=== PATIENT | female | born 1990 | race Caucasian/White ===

== ENCOUNTER → 2016-10-20 | Outpatient (CLI) | payer OTHER ==
[2016-10-20 18:28] LABS: CONTROL LINE HCG INT CTR LINE PRESENT
== END ==
LOC: M SMT 13:41
PROVIDERS: ATTEND Advanced Practice Midwife
DX: N92.6 Irregular menstruation, unspecified (principal)

== ENCOUNTER → 2016-10-31 | Outpatient (CLI) | payer OTHER ==
--- NOTE | 2016-11-01 04:00 | REP ---
Clinical: Abnormal menstrual cycles. Comparison: 08/03/2015 Technique: Transabdominal pelvic ultrasound followed by transvaginal examination for better evaluation of the endometrium and adnexa with color Doppler evaluation of the ovaries. Findings: Bladder is unremarkable and measures 4.9 x 4.2 x 2.1 cm . Normal anteverted uterus measures 6.8 x 3.2 x 4.1 cm. The endometrial complex measures 7.6 mm thickness. No discrete uterine or endometrial abnormalities are appreciated. Incidental note is made of few subcentimeter Nabothian cysts. Bilateral ovaries are normal in vascularity without evidence for torsion. Right ovary measures 3.7 x 2.8 x 2.2 cm and includes 1.2 cm hyperechoic mass which was not apparent on prior examination dated 2014. Right RI = 0.41 . Left ovary measures 3.3 x 2.3 x 3.5 cm and appears normal. Left RI = 0.45 . No pelvic fluid or adnexal mass lesion . Impression: 1. Normal appearing uterus and left ovary. 2. 1.2 cm hyperechoic lesion in the right ovary. Differential diagnosis includes hemorrhagic cyst, endometrioma and dermoid. Consider reevaluation in 4-6 weeks. Signed by Renzo Lance MD 11/01/2016 03:51 A
== END ==
LOC: M RAD 13:46
PROVIDERS: ATTEND Advanced Practice Midwife
DX: N92.0 Excessive and frequent menstruation with regular cycle (principal)

== ENCOUNTER → 2016-11-06 | Outpatient (CLI) | payer OTHER ==
[2016-11-07 10:52] LABS: LUTEINIZING HORMONE 10.8 mIU/mL
[2016-11-07 10:53] LABS: FOLLICLE STIMULATING HORMONE 5.7 mIU/mL
== END ==
LOC: M LRY 12:38
PROVIDERS: ATTEND Advanced Practice Midwife
DX: N92.6 Irregular menstruation, unspecified (principal)

== ENCOUNTER → 2016-11-29 | Outpatient (CLI) | payer OTHER ==
[2016-11-29 12:15] LABS: PROLACTIN 7.6 NG/ML
[2016-11-30 11:10] LABS: ESTRADIOL 44.7 PG/ML; PROGESTERONE 0.9 NG/ML; THYROXINE (T4) 10.9 UG/DL (4.5-12.0)
== END ==
LOC: M LRY 08:59
PROVIDERS: ATTEND Advanced Practice Midwife
DX: N92.6 Irregular menstruation, unspecified (principal)

== ENCOUNTER → 2017-01-06 | Outpatient (CLI) | payer OTHER ==
--- NOTE | 2017-01-06 14:23 | REP ---
Pelvic ultrasound including transabdominal and endovaginal ultrasound assessment: Comparisons are 10/31/2016 and 08/03/2015. The bladder is moderately distended. The uterus is anteverted and normal size measuring 6.6 x 2.7 x 4.1 centimeters. The endometrium is not thickened measuring 5.6 mm. There is an echogenic mass in the right ovary measuring 1.6 cm. On the comparison study this measured up to 1.2 cm. Including this mass. the right ovary is normal size measuring 4.6 x 2.9 x 3.2 cm (3.7 x 2.2 x 2.8, cm previously). The left ovary is normal size measuring 3.7 x 2.1 x 3.7 cm (3.3 x 2.3 x 3.5 cm previously. There is vascular flow in both ovaries with Doppler ultrasound. The resistive indices are not calculated, however, Doppler arterial wave forms are noted in each ovary. Impression: There is a persisting echogenic mass in the right ovary as described, not present on 08/03/2015 but similar to 10/31/2016. I would recommend a gynecology consultation. Signed by Juanpablo Leigh MD 01/06/2017 02:15 P
== END ==
LOC: M RAD 13:01
PROVIDERS: ATTEND Advanced Practice Midwife
DX: N83.209 Unspecified ovarian cyst, unspecified side (principal)

== ENCOUNTER 2017-01-13 22:33 | Emergency (ER) | payer OTHER ==
[~2017-01-13] VITALS: Ht 170.2 cm; Wt 81.6 kg
[2017-01-13] MEDS ORDERED: LEVO88TA3 PO (22:45)
[2017-01-14] MEDS ORDERED: KETO10TAB PO (02:09)
[2017-01-14] MEDS ORDERED: CIPR500T89 PO (02:09)
[2017-01-14] MEDS ORDERED: CIPROFLOXACIN 500 MG TAB PO ONE (02:15)
[2017-01-14 02:35] VITALS: BP 124/80
== END 2017-01-14 02:36 | disposition home or self-care (01) ==
LOC: M ED 23:35
DX: S39.012A Strain of muscle, fascia and tendon of lower back, initial encounter (principal); X58.XXXA Exposure to other specified factors, initial encounter; Y92.9 Unspecified place or not applicable; Y93.9 Activity, unspecified; Y99.9 Unspecified external cause status; N39.0 Urinary tract infection, site not specified; E03.9 Hypothyroidism, unspecified; Z79.899 Other long term (current) drug therapy; Z91.040 Latex allergy status; Z88.0 Allergy status to penicillin

== ENCOUNTER → 2017-04-15 | Outpatient (CLI) | payer OTHER ==
[~2017-04-15] MED LIST: CIPR-249 PO; KETO10TAB PO; LEVO88TA3 PO
--- NOTE | 2017-04-15 16:48 | REP ---
Chest two views HISTORY: Shortness of breath Comparison: 05/03/2016 The lungs are clear. The heart is normal in size. The pulmonary vasculature is normal in appearance. The bony structure is intact. IMPRESSION: No acute disease. Signed by Chuck Caraballo MD 04/15/2017 04:40 P
== END ==
LOC: M LRY 16:20
PROVIDERS: ATTEND Nurse Practitioner Family
DX: R06.02 Shortness of breath (principal)

== ENCOUNTER → 2017-07-05 | Outpatient (CLI) | payer OTHER ==
[2017-07-05 19:51] LABS: FREE T4 1.14 NG/DL (0.76-1.46)
== END ==
LOC: M SMT 11:51
PROVIDERS: ATTEND Advanced Practice Midwife
DX: E03.9 Hypothyroidism, unspecified (principal)

== ENCOUNTER → 2017-07-10 | Outpatient (REF) | payer OTHER | LOC: M SFHCLERA 12:39 | PROVIDERS: ATTEND Nurse Practitioner Family | DX: R30.0 Dysuria (principal) ==